=== PATIENT | female | born 1980 | race Caucasian/White ===

== ENCOUNTER 2018-11-06 15:41 | Emergency (ER) | payer OTHER ==
[~2018-11-06] VITALS: Ht 144.8 cm; Wt 70.5 kg
[~2018-11-06 15:41] MED LIST: DOCU5LIQ PO; IBUP80TA PO; MAPA500T17 PO; MOM30SS PO
[2018-11-06] MEDS ORDERED: SULF1TAB93 (15:47)
[2018-11-06] MEDS ORDERED: ADACEL/BOOSTRIX VACCINE (DIPHTH/PERTUSS/ACELL/TETANUS)0.5ML SYR (90715) IM ONE (17:30)
[2018-11-06] MEDS ORDERED: LIDOCAINE 2% MDV 20 ML VIAL SC ONE (17:30)
[2018-11-06] MEDS ORDERED: NEOSPORIN OINT 0.9 GM PKT (FLOOR STOCK) TOP ONE (18:15)
[2018-11-06 18:38] VITALS: BP 140/75
== END 2018-11-06 18:58 | disposition home or self-care (01) ==
LOC: M ED 15:41
DX: S61.511A Laceration without foreign body of right wrist, initial encounter (principal); W26.0XXA Contact with knife, initial encounter; Y92.018 Other place in single-family (private) house as the place of occurrence of the external cause; Z88.0 Allergy status to penicillin; F17.210 Nicotine dependence, cigarettes, uncomplicated